=== PATIENT | female | born 1970 | race Caucasian/White ===

== ENCOUNTER 2023-09-10 10:39 | Emergency (ER) | payer MEDICAID ==
[2023-09-10] MEDS ORDERED: Ketorolac 60 MG/2 ML SDV IM ONE (11:25)
[2023-09-10] MEDS ORDERED: Sodium Chloride 0.9% 10 ML Syringe FLUSH PRN (11:36)
[2023-09-10 12:04] LABS: BASOPHILS ABSOLUTE AUTO 0.1 K/mm3 (0.0-0.2); BASOPHILS PERCENT AUTO 0.6 % (0.0-1.0); EOSINOPHILS PERCENT AUTO 0.2 % (0.0-6.0); HEMATOCRIT 39.8 % (37.0-47.0); HEMOGLOBIN 12.7 gm/dl (12.0-16.0); IMMATURE GRAN ABSOLUTE AUTO 0.05 K/mm3 (0.00-0.05); IMMATURE GRAN PERCENT AUTO 0.4 % (0.0-0.4); LYMPHOCYTES PERCENT AUTO 16.5 % (24.0-44.0); MEAN CORPUSCULAR HEMOGLOBIN 27.9 pg (28.0-32.0); MEAN CORPUSCULAR HGB CONC 31.9 g/dl (32.0-36.0); MEAN CORPUSCULAR VOLUME 87.3 fl (83.0-99.0); MEAN PLATELET VOLUME 8.7 fl (9.4-12.3); MONOCYTES ABSOLUTE AUTO 0.7 K/mm3 (0.0-0.8); MONOCYTES PERCENT AUTO 5.5 % (0.0-8.0); NEUTROPHILS ABSOLUTE AUTO 9.4 K/mm3 (1.8-7.7); NEUTROPHILS PERCENT AUTO 76.8 % (41.0-71.0); PLATELET COUNT,PLT 472 K/mm3 (150-400); RED BLOOD CELL COUNT 4.56 M/mm3 (4.10-5.30); WHITE BLOOD CELL COUNT,WBC 12.27 K/mm3 (3.9-11.3)
[2023-09-10] MEDS: Ketorolac 30 MG/ML SDV IVPUSH ONE (12:10)
[2023-09-10 12:30] LABS: A/G RATIO 0.8 (1-2); ALBUMIN 3.9 g/dl (3.4-5.0); ANION GAP 14.8 (5-15); BILIRUBIN TOTAL 0.4 mg/dL (0.2-1.0); BUN/CREATININE RATIO 18.9 (14-18); C-REACTIVE PROTEIN 1.53 mg/dL (<0.30); CREATININE 0.9 mg/dL (0.55-1.02); EST CRCL DRUG DOSING (CG) 66.54 mL/min; POTASSIUM,K 3.8 mEq/L (3.5-5.1)
[2023-09-10] MEDS: Iopamidol 755 Mg/ML 100 ML Bottle IVPUSH ONE (12:41)
[2023-09-10] MEDS ORDERED: Sodium Chloride 0.9% 100 ML IV SCH (12:45)
[2023-09-10] MEDS ORDERED: Sodium Chloride 0.9% 10 ML Syringe FLUSH ONE (15:32)
[2023-09-10] MEDS: Iopamidol 612 MG/ML 100 ML Bottle IVPUSH ONE (16:14)
[2023-09-10] MEDS ORDERED: predniSONE 10 MG Tab PO ONE (17:26)
[2023-09-10] MEDS ORDERED: Acetaminophen 325 MG Tab PO ONE (17:26)
== END 2023-09-10 17:40 | disposition home or self-care (01) ==
LOC: JD.ED 10:39
DX: M62.89 Other specified disorders of muscle (principal); Z79.899 Other long term (current) drug therapy
CPT/HCPCS: 36415; 73701; 74177; 80053; 85025; 86140; 96374; 99284; J1885; Q9967

== ENCOUNTER 2023-09-17 13:47 | Emergency (ER) | payer SELFPAY ==
[2023-09-17] MEDS: fentaNYL 100 MCG/2 ML SDV IVPUSH ONE (16:45)
[2023-09-17] MEDS: Acetaminophen/oxyCODONE 325-5 MG Tab PO ONE (17:27)
== END 2023-09-17 17:35 | disposition home or self-care (01) ==
LOC: JD.ED 13:47
DX: R22.42 Localized swelling, mass and lump, left lower limb (principal); M62.89 Other specified disorders of muscle
CPT/HCPCS: 93971; 96374; 99283; A9270; J3010

== ENCOUNTER 2024-02-17 16:27 | Emergency (ER) | payer MEDICAID | END 2024-02-17 19:00 | disposition home or self-care (01) | LOC: JD.ED 16:27 | DX: R20.0 Anesthesia of skin (principal); M79.602 Pain in left arm | CPT/HCPCS: 93971-26-LT; 93971-LT; 99284 ==

== ENCOUNTER 2024-09-04 11:21 | Emergency (ER) | payer MEDICAID ==
[2024-09-04] MEDS: droPERidol 2.5 MG/ML SDV IV STA (11:55)
[2024-09-04 12:09] LABS: BASOPHILS PERCENT AUTO 0.6 % (0.0-1.0); LYMPHOCYTES ABSOLUTE AUTO 0.2 K/mm3 (1.0-4.8); MEAN PLATELET VOLUME 10.1 fl (9.4-12.3); MONOCYTES PERCENT AUTO 1.2 % (0.0-8.0); NEUTROPHILS PERCENT AUTO 89.2 % (41.0-71.0); RED BLOOD CELL COUNT 3.41 M/mm3 (4.10-5.30); WHITE BLOOD CELL COUNT,WBC 3.36 K/mm3 (3.9-11.3)
[2024-09-04 12:10] LABS: HEMOGLOBIN 9.9 gm/dl (12.0-16.0); PLATELET COUNT,PLT 106 K/mm3 (150-400)
[2024-09-04 12:20] LABS: A/G RATIO 0.5 (1-2); ALBUMIN 2.6 g/dl (3.4-5.0); ANION GAP 17.7 (5-15); BILIRUBIN TOTAL 1.1 mg/dL (0.2-1.0); CALCIUM 9.6 mg/dL (8.5-10.1); CREATININE 0.8 mg/dL (0.55-1.02); EST CRCL DRUG DOSING (CG) 77.01 mL/min; POTASSIUM,K 2.7 mEq/L (3.5-5.1); PROTEIN TOTAL,TP 7.8 g/dl (6.4-8.2)
[2024-09-04] MEDS: Lactated Ringers 1,000 ML IV SCH (12:33)
[2024-09-04] MEDS: Potassium Chloride 10 MEQ in Premix Bag 1 BAG IV SCH (12:56)
[2024-09-04] MEDS: Potassium Chloride 20 MEQ Tab.ER PO ONE (12:56)
[2024-09-04] MEDS: oxyCODONE 5 MG Tab PO ONE ×2 (12:56→16:28)
[2024-09-04] MEDS: Magnesium Oxide 400 MG Tab PO ONE (14:05)
[2024-09-04] MEDS: Magnesium Sulfate 2 GM/50 mL 2 GM/50 ML BAG IV STA (14:10)
[2024-09-04] MEDS: Sodium Chloride 0.9% 1,000 ML IV SCH (14:40)
== END 2024-09-04 17:20 | disposition home or self-care (01) ==
LOC: JD.ED 11:21
DX: E87.6 Hypokalemia (principal); R11.2 Nausea with vomiting, unspecified; E83.42 Hypomagnesemia; C76.0 Malignant neoplasm of head, face and neck; Z87.891 Personal history of nicotine dependence
CPT/HCPCS: 36415; 80053; 83735; 85025; 96361; 96365; 96366; 96367; 96368; 96375; 99284; A9270; J1790; J3475; J3480; J7030; J7120; 99285